=== PATIENT | male | born 1980 | race African-American/Black ===

== ENCOUNTER 2019-06-18 11:36 | Emergency (ER) | payer SELFPAY ==
[~2019-06-18] VITALS: Ht 185.4 cm; Wt 74.8 kg
== END 2019-06-18 12:15 | disposition home or self-care (01) ==
LOC: ED 11:36
DX: G43.909 Migraine, unspecified, not intractable, without status migrainosus (principal)

== ENCOUNTER 2019-07-30 17:35 | Emergency (ER) | payer SELFPAY ==
[~2019-07-30] VITALS: Ht 185.4 cm; Wt 74.8 kg
== END 2019-07-30 18:38 | disposition home or self-care (01) ==
LOC: ED 17:35
DX: J06.9 Acute upper respiratory infection, unspecified (principal)

== ENCOUNTER 2021-05-06 17:09 | Emergency (ER) | payer BC ==
[~2021-05-06] VITALS: Wt 74.8 kg
== END 2021-05-06 18:45 | disposition home or self-care (01) ==
LOC: ED 17:09
DX: K52.9 Noninfective gastroenteritis and colitis, unspecified (principal); Z20.822 Contact with and (suspected) exposure to COVID-19

== ENCOUNTER → 2021-10-06 | Outpatient (CLI) | payer BC | END | disposition home or self-care (01) | LOC: COVID19 16:07 | PROVIDERS: ATTEND Internal Medicine | DX: U07.1 COVID-19 (principal) ==